=== PATIENT | female | born 1950 | race Caucasian/White ===

== ENCOUNTER 2019-01-11 11:52 | Inpatient (IN) | payer MEDICARE, MEDICAID ==
[2019-01-11] MEDS ORDERED: Sodium Chloride 0.9% 1,000 ML IV ONE (12:20)
--- NOTE | 2019-01-11 12:35 | ED Physician Chart ---
ED Chief Complaint/HPI - Patient Information Date Seen:: 01/11/19 Time Seen:: 12:00 Chief Complaint:: Weakness History of Present Illness:: onset x 2 days of fever, cough, congestion, weakness and dizziness; no report of trauma, H/As, S/T, neck pain, C/P, SOB, Abd. Pain, A/N/V/D/C, chills, or urinary s/s Allergies:: Allergies Allergy/AdvReac Type Severity Reaction Status Date / Time hydrochlorothiazide Allergy Verified 01/11/19 12:07 Vitals:: Vital Signs - 8 hr 01/11/19 12:02 Temp 97.7 F HR 85 RR 16 BP 117/54 O2 Sat % 99 Historian:: Patient, EMS Review:: Nurse's Note Reviewed, Old Chart Reviewed, EMS run form Reviewed ED Review of Systems - Review of Systems General/Constitutional: Fever, No chills, No weight loss, Weakness, No diaphoresis, No edema, No loss of appetite Skin: No skin lesions, No rash, No bruising Head: No headache, No light-headedness Eyes: No loss of vision, No pain, No diplopia ENT: No earache, No nasal drainage, No sore throat, No tinnitus Neck: No neck pain, No swelling, No thyromegaly, No stiffness, No mass noted Cardio Vascular: No chest pain, No palpitations, No PND, No orthopnea, No edema Pulmonary: No SOB, No cough, No sputum, No wheezing GI: No nausea, No vomiting, No diarrhea, No pain, No melena, No hematochezia, No constipation, No hematemesis G/U: No dysuria, No frequency, No hematuria, No nacturia Director [employer]: No vaginal discharge, No abnormal vaginal bleed, No contraction Musculoskeletal: No bone or joint pain, No back pain, No muscle pain Endocrine: No polyuria, No polydipsia Psychiatric: No prior psych history, No depression, No anxiety, No suicidal ideation, No homicidal ideation, No auditory hallucination, No visual hallucination Hematopoietic: No bruising, No lymphadenopathy Allergic/Immuno: No urticaria, No angioedema Neurological: No syncope, No focal symptoms, Weakness, No paresthesia, No headache, No seizure, Dizziness, Confusion, Vertigo ED Past Medical History - Past Medical History Obtainable: Yes Past Medical History: HTN, DM, CAD, Asthma/COPD, Dyslipidemia, Dementia Family History: Diabetes Melitus, HTN Social History: Non Smoker, No Alcohol, No Drug Use, Surgical History: None Psychiatricy History: Dementia Medication: Reviewed Family Medical History - Family Member Mother History Unknown: Yes ED Physical Exam - Physical Examination General/Constitutional: Awake, Well-developed, well-nourished, Alert, No distress, GCS 15, Non-toxic appearing, Ambulatory Head: Atraumatic Eyes: Lids, conjuctiva normal, PERRL, EOMI Skin: Nl inspection, No rash, No skin lesions, No ecchymosis, Well hydrated, No lymphadenopathy ENMT: External ears, nose nl, TM canals nl, Nasal exam nl, Lips, teeth, gums nl , Oropharynx nl, Tonsils nl Neck: Nontender, Full ROM w/o pain, No JVD, No nuchal rigidity, No bruit, No mass, No stridor Other Neck comments:: supple; no meningeal signs; no cervical tenderness; no bruits Respiratory: Nl effort/Exclusion Other Respiratory comments:: Lungs: + Rales and Rhonchi Cardio Vascular: RRR, No murmur, gallop, rubs, NL S1 S2, Carotid/Femoral/Distal pulses equal bilaterally GI: No tenderness/rebounding/guarding, No organomegaly, No hernia, Normal BS's, Nondistended, No mass/bruits, No McBurney tenderness, Rectum exam nl Other GI comments:: no pulsatile masses : No CVA tenderness Extremities: No tenderness or effusion, Full ROM, normal strength in all extremities, No edema, Normal digits & nails Neuro/Psych: Alert/oriented, DTR's symmetric, Normal sensory exam, Normal motor strength, Judgement/insight normal, Mood normal, Normal gait, No focal deficits Misc: Normal back, No paraspinal tenderness ED Labs/Radiology/EKG Results - Lab Results Comments:: Reviewed - Radiology Results Comments:: CXR: + Infiltrate; COPD - EKG Interpretations EKG Time:: 12:27 Rate & Rhythm: 82; NSR Comments:: LVH; T-Wave Inversions ED Septic Shock - . Is Septic Shock (SBP<90, OR Lactate>4 mmol\L) present?: No - <6hrs of presentation: Vital Signs: Vital Signs - 8 hr 01/11/19 12:02 Temp 97.7 F HR 85 RR 16 BP 117/54 O2 Sat % 99 ED Reassessment (Disposition) - Reassessment Reassessment Condition:: Improved - Diagnosis Diagnosis:: Weakness; Hypotension; Hypoglycemia; Myocardial Ischemia; Fever; Cough; Pneumonia; Leukocytosis; Elevated Troponin; Hyponatremia; Hypoalbuminemia - Aftercare/Follow up Instructions Aftercare/Follow-Up Instructions:: Counseled pt regarding lab results/diagnosis & need follow up, Counseled pt & family regarding lab results/diagnosis & need follow up - Patient Disposition Discharge/Transfer:: Acute Care w/in this hosp Accepting Physician:: Dr. Kearney Time Called:: 1330 Time Responded:: 13:30 Admitted to:: ICU Spoke to:: Dr. Kearney Admitting Medical Physician:: Dr. Kearney Condition at Disposition:: Stable, Improved
[2019-01-11 12:50] LABS: % BASOPHILS 0.1 % (0.0-2.0); % EOSINOPHILS 0.9 % (0.0-5.0); % LYMPHOCYTES 13.8 % (20.0-50.0); % MONOCYTES 1.6 % (2.0-10.0); % NEUTROPHILS 83.6 % (40.0-80.0); EOSINOPHILE ABSOLUTE 0.1 Th/cmm (0.1-0.4); HEMATOCRIT 40.3 % (41.0-60); HEMOGLOBIN 13.5 gm/dL (12-16); LYMPHOCYTE ABSOLUTE 2.2 Th/cmm (1.5-3.0); MEAN CELL VOLUME 94.7 fl (81-100); MEAN CORPUSCULAR HEMOGLOBIN 31.8 pg (27.0-31.0); MEAN CORPUSCULAR HGB CONC 33.6 pg (28.0-36.0); MONOCYTE ABSOLUTE 0.3 Th/cmm (0.3-1.0); NEUTROPHILE ABSOLUTE 13.6 Th/cmm (1.8-8.0); PLATELET COUNT 383 Th/cmm (150-400); RED BLOOD COUNT 4.25 Mil/cmm (3.80-5.20)
[2019-01-11 12:52] LABS: URINE SOURCE MIDSTREAM
[2019-01-11 12:55] LABS: INR 0.92 (0.5-1.4)
[2019-01-11 12:59] LABS: ALB/GLOB RATIO 1.5 (1.0-1.8); ALBUMIN 3.3 gm/dL (3.7-5.3); ALKALINE PHOSPHATASE 44 U/L (34-104); AMYLASE SERUM 27 U/L (29-103); BILIRUBIN,TOTAL 0.7 mg/dL (0.3-1.0); BUN - UREA NITROGEN 19 mg/dL (7-25); CALCIUM SERUM 8.6 mg/dL (8.6-10.3); CARBON DIOXIDE 24.8 mEq/L (21.0-31.0); CHLORIDE 102 mEq/L (98-107); CREATININE - SERUM 0.8 mg/dL (0.6-1.2); CREATININE KINASE 65 U/L (30-223); GFR AFRICAN-AMERICAN > 60.0 ml/min (>90); GFR NON AFRICAN-AMERICAN > 60.0 ml/min; GLUCOSE 89 mg/dL (70-105); LIPASE 31 U/L (11-82); POTASSIUM SERUM 3.8 mEq/L (3.5-5.1); SGOT 18 U/L (13-39); SGPT/ALT 15 U/L (7-52); SODIUM SERUM 133 mEq/L (136-145); TOTAL PROTEIN,SERUM 5.5 gm/dL (6.0-8.3)
[2019-01-11 13:11] LABS: URINE BILIRUBIN NEGATIVE (NEGATIVE); URINE BLOOD NEGATIVE (NEGATIVE); URINE GLUCOSE (UA) NEGATIVE (NEGATIVE); URINE KETONE NEGATIVE (NEGATIVE); URINE LEUKOCYTE ESTERASE NEGATIVE (NEGATIVE); URINE NITRATE NEGATIVE (NEGATIVE); URINE PROTEIN NEGATIVE (NEGATIVE); URINE UROBILINOGEN 0.2 E.U./dL (0.2 - 1.0)
[2019-01-11 13:12] LABS: URINE CLARITY CLEAR (CLEAR); URINE COLOR YELLOW; URINE MICROSCOPIC INDICATED? NO
[2019-01-11 13:14] LABS: WHITE BLOOD COUNT 16.2 Th/cmm (4.8-10.8)
[2019-01-11] MEDS ORDERED: Levofloxacin 500mg/100mL 500 MG/100 ML BAG IV ONE ×2 (13:16→13:46)
--- NOTE | 2019-01-11 13:33 | Diagnostic Imaging Report ---
Portable chest x-ray Time: 1232 History: Pain Allowing for portable technique the heart size is normal. No focal pulmonary parenchymal processes. No hilar or mediastinal abnormalities. Impression: No acute abnormalities.
[2019-01-11] MEDS ORDERED: D5-0.45NS 1,000 ML IV SCH (15:11)
[2019-01-11] MEDS ORDERED: cefTRIAXone 1 GM in Sodium Chloride 0.9% 50 ML IV SCH (15:11)
[2019-01-11] MEDS ORDERED: Albuterol/Ipratropium Neb 3 ML AERS HHN PRN ×2 (15:11→15:53)
[2019-01-11] MEDS ORDERED: Azithromycin 500 MG in Sodium Chloride 0.9% 250 ML IV SCH (17:00)
[2019-01-11] MEDS ORDERED: Azithromycin 500 MG in Sodium Chloride 0.9% 250 ML IV ONE ×2 (17:00→18:00)
[2019-01-11] MEDS: D5-0.45NS 1,000 ML IV SCH (17:01)
[2019-01-11] MEDS: cefTRIAXone 1 GM in Sodium Chloride 0.9% 50 ML IV SCH (17:02)
[2019-01-11 18:02] VITALS: BP 114/54
--- NOTE | 2019-01-12 03:46 | History & Physical ---
ADMIT DATE: 01/11/2019 CHIEF COMPLAINT: 1. Hypotension. 2. Weakness, not feeling well. HISTORY OF PRESENT ILLNESS: This is a 68-year-old female with underlying history of CVA associated with aphasia, left hemiparesis, chronic obstructive pulmonary disease, hypertension, coronary artery disease, prior history of [place], who was recently diagnosed with the severe bronchitis, was given oral antibiotic and bronchodilator treatment as an outpatient. The patient finished two courses of oral antibiotics, but the patient's chest congestion and cough still persists. This morning, the patient with hypotension, 67 systolic. The patient was not feeling well. No appetite. The patient discharged to Emergency Room where she had a repeat chest x-ray done suggestive of pneumonia. White count was 16.2, so the patient was admitted for further evaluation and treatment. PAST MEDICAL HISTORY: Dysphagia. PAST SURGICAL HISTORY: Denies. FAMILY HISTORY: Denies. SOCIAL HISTORY: assisted resident. Denies any alcohol. Chronic ex-smoker. No current alcohol, tobacco use street drug use. CURRENT MEDICATIONS: MAR reviewed ALLERGIES: HYDROCODONE. REVIEW OF SYSTEMS: As per HPI, 12-point system was negative. PHYSICAL EXAMINATION: VITAL SIGNS: Temperature 98, pulse 94, respirations 20, blood pressure 114/54. HEENT: Unremarkable. HEART: S1, S2 normal. LUNGS: Bilateral rales. ABDOMEN: Soft, Non tender EXTREMITIES: No calf tenderness. AVAILABLE LABORATORY DATA AND IMAGING STUDIES: As noted. ASSESSMENT: 1. Pneumonia. 2. Old cerebrovascular accident, late effect. 3. Chronic obstructive pulmonary disease. 4. Generalized weakness. 5. Coronary artery disease. PLAN: The patient admitted to Med/Surg floor. The patient was started on IV Rocephin, Zithromax, Pulmonology consult, _ DuoNeb nebulizer has been ordered. Pulmicort ordered. Serial troponins due to abnormal EKGs, discontinued. Continue aspirin and statin. Beta aaron restarted. Monitor lab and vitals. Discussed with the patient regarding condition and plan of care. JOB# [id number] JORGE
[2019-01-12] MEDS: D5-0.45NS 1,000 ML IV SCH ×2 (05:49→18:03)
[2019-01-12] MEDS: Budesonide 0.5 Mg/2 mL Ud HHN SCH ×2 (07:14→18:55)
[2019-01-12] MEDS: Aspirin 81mg Chewable Tab PO SCH (08:50)
--- NOTE | 2019-01-12 09:40 | Diagnostic Imaging Report ---
CT Chest without IV contrast HISTORY: Pneumonia COMPARISON: Chest x-ray performed on 01/11/2019. Technique: Axial images were obtained from the base of the neck to the upper abdomen without IV contrast. Reconstructions were made. Total DLP 194, CTD I 5.1 Findings: Evaluation of the mediastinum is limited due to lack of IV contrast. Heart size is normal. There is heavy atherosclerotic vascular disease with coronary artery calcifications. Small pericardial effusion is noted. No evidence of an aneurysm. Evaluation of the lungs demonstrates chronic interstitial lung changes and COPD changes seen throughout the lungs. Hazy densities are seen along the bilateral peripheral lung zones left greater than right. There is also a 2 mm nodule along the inferior aspect of the right lower lobe (image 56, series 3). No pleural effusions or focal consolidation. The upper abdomen demonstrate atherosclerosis. There are mild bilateral perinephric inflammatory changes. Gallstones are noted. Degenerative changes of the spine are noted. IMPRESSION: Chronic lung changes with emphysematous changes noted. There are faint hazy densities along the bilateral peripheral lung zones which may represents tiny infiltrates. As such infectious pneumonia cannot be excluded. Clinical correlation and follow-up recommended. 2 mm nodule right upper lobe probably due to old infectious or inflammatory process. Consider follow-up if indicated Diffuse atherosclerosis including coronary artery disease. Cholelithiasis.
--- NOTE | 2019-01-12 12:53 | General Progress Note ---
Subjective - Review of Systems Service Date: 01/12/19 Subjective: Patient seen and examined feels better no new concern reported Objective - Results Result Diagrams: 01/11/19 12:35 01/11/19 12:35 Recent Labs: Laboratory Last Values WBC 16.2 Th/cmm (4.8-10.8) H 01/11/19 12:35 RBC 4.25 Mil/cmm (3.80-5.20) 01/11/19 12:35 Hgb 13.5 gm/dL (12-16) 01/11/19 12:35 Hct 40.3 % (41.0-60) L 01/11/19 12:35 MCV 94.7 fl (81-100) 01/11/19 12:35 MCH 31.8 pg (27.0-31.0) H 01/11/19 12:35 MCHC Differential 33.6 pg (28.0-36.0) 01/11/19 12:35 RDW 14.0 % (11.5-20.0) 01/11/19 12:35 Plt Count 383 Th/cmm (150-400) 01/11/19 12:35 MPV 6.9 fl 01/11/19 12:35 Neutrophils % 83.6 % (40.0-80.0) H 01/11/19 12:35 Lymphocytes % 13.8 % (20.0-50.0) L 01/11/19 12:35 Monocytes % 1.6 % (2.0-10.0) L 01/11/19 12:35 Eosinophils % 0.9 % (0.0-5.0) 01/11/19 12:35 Basophils % 0.1 % (0.0-2.0) 01/11/19 12:35 PT 9.6 SECONDS (9.5-11.5) 01/11/19 12:35 INR 0.92 (0.5-1.4) 01/11/19 12:35 PTT (Actin FS) 21.3 SECONDS (26.0-38.0) L 01/11/19 12:35 Sodium 133 mEq/L (136-145) L 01/11/19 12:35 Potassium 3.8 mEq/L (3.5-5.1) 01/11/19 12:35 Chloride 102 mEq/L (98-107) 01/11/19 12:35 Carbon Dioxide 24.8 mEq/L (21.0-31.0) 01/11/19 12:35 Anion Gap 10.0 (7.0-16.0) 01/11/19 12:35 BUN 19 mg/dL (7-25) 01/11/19 12:35 Creatinine 0.8 mg/dL (0.6-1.2) 01/11/19 12:35 Est GFR ( Amer) > 60.0 ml/min (>90) 01/11/19 12:35 Est GFR (Non-Af Amer) > 60.0 ml/min 01/11/19 12:35 BUN/Creatinine Ratio 23.8 01/11/19 12:35 Glucose 89 mg/dL (70-105) 01/11/19 12:35 POC Glucose 105 MG/DL (70 - 105) 01/11/19 16:02 Whole Bld Lactic Acid 1.38 mmol/L (0.60-1.99) 01/11/19 12:35 Calcium 8.6 mg/dL (8.6-10.3) 01/11/19 12:35 Total Bilirubin 0.7 mg/dL (0.3-1.0) 01/11/19 12:35 AST 18 U/L (13-39) 01/11/19 12:35 ALT 15 U/L (7-52) 01/11/19 12:35 Alkaline Phosphatase 44 U/L (34-104) 01/11/19 12:35 Creatine Kinase 65 U/L (30-223) 01/11/19 12:35 Troponin I 0.06 ng/mL (0.01-0.05) H 01/11/19 20:10 Total Protein 5.5 gm/dL (6.0-8.3) L 01/11/19 12:35 Albumin 3.3 gm/dL (3.7-5.3) L 01/11/19 12:35 Globulin 2.2 gm/dL 01/11/19 12:35 Albumin/Globulin Ratio 1.5 (1.0-1.8) 01/11/19 12:35 Amylase 27 U/L (29-103) L 01/11/19 12:35 Lipase 31 U/L (11-82) 01/11/19 12:35 Urine Source MIDSTREAM 01/11/19 12:40 Urine Color YELLOW 01/11/19 12:40 Urine Clarity CLEAR (CLEAR) 01/11/19 12:40 Urine pH 6.0 (4.6 - 8.0) 01/11/19 12:40 Ur Specific [place] <= 1.005 (1.005-1.030) 01/11/19 12:40 Urine Protein NEGATIVE mg/dL (NEGATIVE) 01/11/19 12:40 Urine Glucose (UA) NEGATIVE mg/dL (NEGATIVE) 01/11/19 12:40 Urine Ketones NEGATIVE mg/dL (NEGATIVE) 01/11/19 12:40 Urine Blood NEGATIVE (NEGATIVE) 01/11/19 12:40 Urine Nitrate NEGATIVE (NEGATIVE) 01/11/19 12:40 Urine Bilirubin NEGATIVE (NEGATIVE) 01/11/19 12:40 Urine Urobilinogen 0.2 E.U./dL (0.2 - 1.0) 01/11/19 12:40 Ur Leukocyte Esterase NEGATIVE (NEGATIVE) 01/11/19 12:40 - Physical Exam Vitals and I&O: Vital Signs Temp 96.9 F 01/12/19 11:52 Pulse 74 01/12/19 11:52 Resp 18 01/12/19 12:42 BP 118/51 01/12/19 11:52 Pulse Ox 99 01/12/19 11:52 Intake & Output 01/11/19 01/12/19 01/12/19 18:59 06:59 18:59 Intake Total 240 1000 Balance 240 1000 Weight (lbs) 52.617 kg Intake: Intake, IV Amount 1000 D5-0.45NS 1,000 ml @ 80 1000 mls/hr IV .[id number] [facility] Rx #:[id number] Oral 240 Other: # Voids 1 # Bowel Movements 0 Weight Source Bedscale Active Medications: Current Medications Acetaminophen (Tylenol) 500 mg PO Q4HR PRN PRN Reason: Pain Or Fever above 101 Stop: 03/12/19 15:10 Acetaminophen (Tylenol) 650 mg PO Q6H PRN PRN Reason: mild pain Stop: 03/12/19 22:25 Albuterol/Ipratropium (Duoneb Neb) 3 ml HHN Q2H PRN PRN Reason: Wheezing Stop: 03/12/19 15:10 Last Admin: 01/12/19 07:14 Dose: 3 ml Aspirin (Aspirin Chewable) 81 mg PO DAILY [facility] Stop: 03/13/19 08:59 Last Admin: 01/12/19 08:50 Dose: 81 mg Atorvastatin Calcium (Lipitor) 80 mg PO HS [facility]; Protocol Stop: 03/12/19 22:59 Last Admin: 01/11/19 23:11 Dose: 80 mg Budesonide (Pulmicort) 0.5 mg HHN BIDRT [facility] Stop: 03/13/19 06:59 Last Admin: 01/12/19 07:14 Dose: 0.5 mg Clopidogrel Bisulfate (Plavix) 75 mg PO DAILY [facility] Stop: 03/13/19 08:59 Last Admin: 01/12/19 08:50 Dose: 75 mg Dextrose/Sodium Chloride (D5-0.45ns) 1,000 mls @ 80 mls/hr IV .[id number] [facility] Stop: 03/12/19 15:10 Last Admin: 01/12/19 05:49 Dose: 80 mls/hr Ceftriaxone Sodium 1 gm/ (Sodium Chloride) 50 mls @ 100 mls/hr IV Q24HR [facility] Stop: 03/12/19 15:10 Last Admin: 01/11/19 17:02 Dose: 100 mls/hr Metoprolol Tartrate (Lopressor) 25 mg PO BID [facility] Stop: 03/13/19 08:59 Last Admin: 01/12/19 08:50 Dose: 25 mg Ondansetron HCl (Zofran) 4 mg IV Q6H PRN PRN Reason: Nausea / Vomiting Stop: 03/12/19 15:10 Cardiovascular: Regular rate Lungs: Other (rales) Assessment/Plan - Assessment Assessment: Pneumonia CAD HTN Old CVA with late affect - Plan Plan: Patient slowly improving Continue current treatment
[2019-01-12] MEDS ORDERED: Albuterol/Ipratropium Neb 3 ML AERS HHN SCH (15:00)
[2019-01-12] MEDS: cefTRIAXone 1 GM in Sodium Chloride 0.9% 50 ML IV SCH (15:39)
[2019-01-12] MEDS: Albuterol/Ipratropium Neb 3 ML AERS HHN SCH ×2 (15:52→18:55)
[2019-01-12] MEDS: methylPREDNISolone SS 40 mg Vial IV SCH ×2 (16:44→20:27)
[2019-01-12] MEDS ORDERED: Budesonide 0.5 Mg/2 mL Ud HHN SCH ×2 (19:00)
--- NOTE | 2019-01-13 00:31 | Consultation ---
DATE OF CONSULTATION: 01/11/2019 PULMONARY CONSULTATION REASON FOR CONSULTATION: Shortness of breath. CONSULT NOTE: This is a 68-year-old female who basically has a history of underlying previous CVA with partial aphasia with left hemiparesis. The patient comes here because of shortness of breath, coughing, and wheezing. Unfortunately, very hard to hear. She is very high tone with partial exposure type of voice. Subsequently, the patient was treated as an outpatient with various bronchodilator medication as the patient continued to worse. The patient was admitted for further care and necessary treatment. PAST MEDICAL HISTORY: History of severe, possibly expressive aphasia, dysphagia and also history of previous pneumonia and also history of cerebrovascular accident. SMOKING HISTORY: The patient denies. Currently lives in a convalescent home, though there is some mention of a chronic smoker. ALLERGIC TO HYDROCODONE, otherwise unremarkable. PHYSICAL FINDING: GENERAL: This is a short stature middle-aged looking female, awake, alert, oriented, not in acute distress. VITAL SIGNS: The patient's recorded vitals: Temperature is 96.9, blood pressure 118/51. NECK: Veins not visualized. CHEST: Shows occasional rhonchi with generalized diminished air entry. HEART: Regular. ABDOMEN: Soft, nontender. EXTREMITIES: Shows no peripheral edema. LABORATORY DATA: The patient's pertinent laboratory study, chest x-ray is essentially unremarkable and the patient's CT chest shows chronic lung changes with some emphysema changes, otherwise unremarkable and very minimal interstitial heavy markings in the periphery and the patient's other laboratory studies, white count is 16.2 and hemoglobin 13.5. Electrolytes are okay. ASSESSMENT: The patient has an acute exacerbation of chronic obstructive pulmonary disease, questionable dysphagia, etc. with history of previous cerebrovascular accident. PLANS AND SUGGESTIONS: We will continue aggressive respiratory care, inhalation treatment, broad-spectrum antibiotic, question as to dysphagia evaluation, etc. and go from there. JOB# [id number]
[2019-01-13] MEDS: methylPREDNISolone SS 40 mg Vial IV SCH ×3 (04:15→20:55)
[2019-01-13 07:01] LABS: BASOPHILE ABSOLUTE 0.1 Th/cumm (0-0.2); EOSINOPHILE ABSOLUTE 0.1 Th/cmm (0.1-0.4); HEMATOCRIT 41.1 % (41.0-60); LYMPHOCYTE ABSOLUTE 0.6 Th/cmm (1.5-3.0); MEAN CELL VOLUME 95.9 fl (81-100); MEAN CORPUSCULAR HEMOGLOBIN 32.5 pg (27.0-31.0); MEAN CORPUSCULAR HGB CONC 33.9 pg (28.0-36.0); MONOCYTE ABSOLUTE 0.1 Th/cmm (0.3-1.0); NEUTROPHILE ABSOLUTE 10.4 Th/cmm (1.8-8.0); PLATELET COUNT 304 Th/cmm (150-400); RED BLOOD COUNT 4.29 Mil/cmm (3.80-5.20); RED CELL DISTRIBUTION WIDTH 13.2 % (11.5-20.0); WHITE BLOOD COUNT 11.3 Th/cmm (4.8-10.8)
[2019-01-13] MEDS: Budesonide 0.5 Mg/2 mL Ud HHN SCH ×2 (07:19→20:15)
[2019-01-13] MEDS: Albuterol/Ipratropium Neb 3 ML AERS HHN SCH ×4 (07:19→20:15)
[2019-01-13 07:54] LABS: ALB/GLOB RATIO 1.4 (1.0-1.8); ALBUMIN 3.4 gm/dL (3.7-5.3); ALKALINE PHOSPHATASE 43 U/L (34-104); ANION GAP 15.4 (7.0-16.0); BILIRUBIN,DIRECT 0.18 mg/dL (0.0-0.2); BILIRUBIN,TOTAL 0.8 mg/dL (0.3-1.0); BUN - UREA NITROGEN 10 mg/dL (7-25); CALCIUM SERUM 8.9 mg/dL (8.6-10.3); CARBON DIOXIDE 23.4 mEq/L (21.0-31.0); CHLORIDE 103 mEq/L (98-107); CREATININE - SERUM 0.8 mg/dL (0.6-1.2); GFR AFRICAN-AMERICAN > 60.0 ml/min (>90); GFR NON AFRICAN-AMERICAN > 60.0 ml/min; GLUCOSE 191 mg/dL (70-105); POTASSIUM SERUM 4.8 mEq/L (3.5-5.1); SGOT 15 U/L (13-39); SGPT/ALT 12 U/L (7-52); SODIUM SERUM 137 mEq/L (136-145); TOTAL PROTEIN,SERUM 5.8 gm/dL (6.0-8.3)
[2019-01-13 08:07] LABS: BAND NEUTROPHILE 1 % (0-10); NEUTROPHILS 88 % (40-80)
[2019-01-13 08:08] LABS: LYMPHOCYTE 8 % (20-50); MONOCYTE 3 % (2-10)
--- NOTE | 2019-01-13 08:59 | Diagnostic Imaging Report ---
CHEST X-RAY: AP view INDICATION: Pneumonia COMPARISON: Chest x-ray and chest CT 01/11/2019 FINDINGS: There is no focal consolidation or pleural effusions The heart is normal in size. Atherosclerosis is noted. Degenerative changes of the spine are noted. Gas-filled bowel the upper abdomen are noted. IMPRESSION: No focal consolidation identified. Please also refer to recent CT examination of the chest for further findings. Atherosclerotic vascular disease.
[2019-01-13] MEDS: Aspirin 81mg Chewable Tab PO SCH (09:02)
[2019-01-13] MEDS: D5-0.45NS 1,000 ML IV SCH ×2 (09:03→21:00)
[2019-01-13] MEDS: cefTRIAXone 1 GM in Sodium Chloride 0.9% 50 ML IV SCH (16:44)
--- NOTE | 2019-01-13 23:02 | General Progress Note ---
Subjective - Review of Systems Service Date: 01/13/19 Subjective: Patient seen and examined feels better no new concern reported Objective - Results Result Diagrams: 01/13/19 06:40 01/13/19 06:40 Recent Labs: Laboratory Last Values WBC 11.3 Th/cmm (4.8-10.8) H 01/13/19 06:40 RBC 4.29 Mil/cmm (3.80-5.20) 01/13/19 06:40 Hgb 14.0 gm/dL (12-16) 01/13/19 06:40 Hct 41.1 % (41.0-60) 01/13/19 06:40 MCV 95.9 fl (81-100) 01/13/19 06:40 MCH 32.5 pg (27.0-31.0) H 01/13/19 06:40 MCHC Differential 33.9 pg (28.0-36.0) 01/13/19 06:40 RDW 13.2 % (11.5-20.0) 01/13/19 06:40 Plt Count 304 Th/cmm (150-400) 01/13/19 06:40 MPV 7.0 fl 01/13/19 06:40 Add Manual Diff YES 01/13/19 06:40 Neutrophils % 83.6 % (40.0-80.0) H 01/11/19 12:35 Band Neutrophils % 1 % (0-10) 01/13/19 06:40 Lymphocytes % 13.8 % (20.0-50.0) L 01/11/19 12:35 Monocytes % 1.6 % (2.0-10.0) L 01/11/19 12:35 Eosinophils % 0.9 % (0.0-5.0) 01/11/19 12:35 Basophils % 0.1 % (0.0-2.0) 01/11/19 12:35 Neutrophils (Manual) 88 % (40-80) H 01/13/19 06:40 Lymphocytes 8 % (20-50) L 01/13/19 06:40 Monocytes 3 % (2-10) 01/13/19 06:40 PT 9.6 SECONDS (9.5-11.5) 01/11/19 12:35 INR 0.92 (0.5-1.4) 01/11/19 12:35 PTT (Actin FS) 21.3 SECONDS (26.0-38.0) L 01/11/19 12:35 Sodium 137 mEq/L (136-145) 01/13/19 06:40 Potassium 4.8 mEq/L (3.5-5.1) 01/13/19 06:40 Chloride 103 mEq/L (98-107) 01/13/19 06:40 Carbon Dioxide 23.4 mEq/L (21.0-31.0) 01/13/19 06:40 Anion Gap 15.4 (7.0-16.0) 01/13/19 06:40 BUN 10 mg/dL (7-25) 01/13/19 06:40 Creatinine 0.8 mg/dL (0.6-1.2) 01/13/19 06:40 Est GFR ( Amer) > 60.0 ml/min (>90) 01/13/19 06:40 Est GFR (Non-Af Amer) > 60.0 ml/min 01/13/19 06:40 BUN/Creatinine Ratio 12.5 01/13/19 06:40 Glucose 191 mg/dL (70-105) H 01/13/19 06:40 POC Glucose 105 MG/DL (70 - 105) 01/11/19 16:02 Whole Bld Lactic Acid 1.38 mmol/L (0.60-1.99) 01/11/19 12:35 Calcium 8.9 mg/dL (8.6-10.3) 01/13/19 06:40 Total Bilirubin 0.8 mg/dL (0.3-1.0) 01/13/19 06:40 Direct Bilirubin 0.18 mg/dL (0.0-0.2) 01/13/19 06:40 AST 15 U/L (13-39) 01/13/19 06:40 ALT 12 U/L (7-52) 01/13/19 06:40 Alkaline Phosphatase 43 U/L (34-104) 01/13/19 06:40 Ammonia 37 umol/L (16-53) 01/13/19 06:40 Creatine Kinase 65 U/L (30-223) 01/11/19 12:35 Troponin I 0.06 ng/mL (0.01-0.05) H 01/11/19 20:10 Total Protein 5.8 gm/dL (6.0-8.3) L 01/13/19 06:40 Albumin 3.4 gm/dL (3.7-5.3) L 01/13/19 06:40 Globulin 2.4 gm/dL 01/13/19 06:40 Albumin/Globulin Ratio 1.4 (1.0-1.8) 01/13/19 06:40 Amylase 27 U/L (29-103) L 01/11/19 12:35 Lipase 31 U/L (11-82) 01/11/19 12:35 Urine Source MIDSTREAM 01/11/19 12:40 Urine Color YELLOW 01/11/19 12:40 Urine Clarity CLEAR (CLEAR) 01/11/19 12:40 Urine pH 6.0 (4.6 - 8.0) 01/11/19 12:40 Ur Specific [place] <= 1.005 (1.005-1.030) 01/11/19 12:40 Urine Protein NEGATIVE mg/dL (NEGATIVE) 01/11/19 12:40 Urine Glucose (UA) NEGATIVE mg/dL (NEGATIVE) 01/11/19 12:40 Urine Ketones NEGATIVE mg/dL (NEGATIVE) 01/11/19 12:40 Urine Blood NEGATIVE (NEGATIVE) 01/11/19 12:40 Urine Nitrate NEGATIVE (NEGATIVE) 01/11/19 12:40 Urine Bilirubin NEGATIVE (NEGATIVE) 01/11/19 12:40 Urine Urobilinogen 0.2 E.U./dL (0.2 - 1.0) 01/11/19 12:40 Ur Leukocyte Esterase NEGATIVE (NEGATIVE) 01/11/19 12:40 - Physical Exam Vitals and I&O: Vital Signs Temp 97.6 F 01/13/19 20:21 Pulse 95 01/13/19 20:23 Resp 18 01/13/19 21:00 BP 104/57 01/13/19 20:21 Pulse Ox 98 01/13/19 20:23 Intake & Output 01/13/19 01/13/19 01/14/19 06:59 18:59 06:59 Intake Total 1400 435 956 Balance 1400 435 956 Weight (lbs) 52.617 kg 52.617 kg Intake: Intake, IV Amount 1000 956 D5-0.45NS 1,000 ml @ 80 1000 956 mls/hr IV .[id number] [facility] Rx #:[id number] Oral 400 435 Other: # Voids 4 3 # Bowel Movements 0 1 Weight Source Bedscale Bedscale Active Medications: Current Medications Acetaminophen (Tylenol) 500 mg PO Q4HR PRN PRN Reason: Pain Or Fever above 101 Stop: 03/12/19 15:10 Acetaminophen (Tylenol) 650 mg PO Q6H PRN PRN Reason: mild pain Stop: 03/12/19 22:25 Last Admin: 01/13/19 09:17 Dose: 650 mg Albuterol/Ipratropium (Duoneb Neb) 3 ml HHN Q2H PRN PRN Reason: Wheezing Stop: 03/12/19 15:10 Last Admin: 01/12/19 07:14 Dose: 3 ml Albuterol/Ipratropium (Duoneb Neb) 3 ml HHN [id number] [facility] Stop: 03/13/19 14:59 Last Admin: 01/13/19 20:15 Dose: 3 ml Albuterol/Ipratropium (Duoneb Neb) 3 ml HHN [id number] [facility] Stop: 03/13/19 14:59 Aspirin (Aspirin Chewable) 81 mg PO DAILY [facility] Stop: 03/13/19 08:59 Last Admin: 01/13/19 09:02 Dose: 81 mg Atorvastatin Calcium (Lipitor) 80 mg PO HS [facility]; Protocol Stop: 03/12/19 22:59 Last Admin: 01/13/19 20:55 Dose: 80 mg Budesonide (Pulmicort) 0.5 mg HHN BIDRT [facility] Stop: 03/13/19 06:59 Last Admin: 01/13/19 20:15 Dose: 0.5 mg Budesonide (Pulmicort) 0.5 mg HHN BIDRT [facility] Stop: 03/13/19 18:59 Budesonide (Pulmicort) 0.5 mg HHN BIDRT [facility] Stop: 03/13/19 18:59 Clopidogrel Bisulfate (Plavix) 75 mg PO DAILY [facility] Stop: 03/13/19 08:59 Last Admin: 01/13/19 09:02 Dose: 75 mg Dextrose/Sodium Chloride (D5-0.45ns) 1,000 mls @ 80 mls/hr IV .[id number] [facility] Stop: 03/12/19 15:10 Last Admin: 01/13/19 21:00 Dose: 80 mls/hr Ceftriaxone Sodium 1 gm/ (Sodium Chloride) 50 mls @ 100 mls/hr IV Q24HR [facility] Stop: 03/12/19 15:10 Last Admin: 01/13/19 16:44 Dose: 100 mls/hr Methylprednisolone Sodium Succinate (Solu-Medrol) 40 mg IV Q8HR [facility] Stop: 01/15/19 13:01 Last Admin: 01/13/19 20:55 Dose: 40 mg Metoprolol Tartrate (Lopressor) 25 mg PO BID [facility] Stop: 03/13/19 08:59 Last Admin: 01/13/19 16:44 Dose: 25 mg Ondansetron HCl (Zofran) 4 mg IV Q6H PRN PRN Reason: Nausea / Vomiting Stop: 03/12/19 15:10 General: Alert Cardiovascular: Regular rate Lungs: Other (rales) Assessment/Plan - Assessment Assessment: Pneumonia COPD exacerbation CAD HTN Old CVA with late affect - Plan Plan: Patient slowly improving Continue current treatment
[2019-01-14] MEDS: methylPREDNISolone SS 40 mg Vial IV SCH ×2 (04:29→13:16)
[2019-01-14 05:44] LABS: ANION GAP 14.5 (7.0-16.0); BUN - UREA NITROGEN 16 mg/dL (7-25); CALCIUM SERUM 8.6 mg/dL (8.6-10.3); CHLORIDE 104 mEq/L (98-107); CREATININE - SERUM 0.8 mg/dL (0.6-1.2); GFR AFRICAN-AMERICAN > 60.0 ml/min (>90); GFR NON AFRICAN-AMERICAN > 60.0 ml/min; GLUCOSE 144 mg/dL (70-105); POTASSIUM SERUM 3.5 mEq/L (3.5-5.1); SODIUM SERUM 137 mEq/L (136-145)
[2019-01-14] MEDS: Albuterol/Ipratropium Neb 3 ML AERS HHN SCH ×3 (07:08→14:37)
[2019-01-14] MEDS: Budesonide 0.5 Mg/2 mL Ud HHN SCH (07:08)
[2019-01-14 07:11] LABS: A1C 5.8 % (4.8-5.6)
[2019-01-14] MEDS: Aspirin 81mg Chewable Tab PO SCH (09:53)
[2019-01-14] MEDS: D5-0.45NS 1,000 ML IV SCH ×2 (11:16→18:34)
[2019-01-14] MEDS: cefTRIAXone 1 GM in Sodium Chloride 0.9% 50 ML IV SCH (15:41)
--- NOTE | 2019-01-14 16:43 | Progress Notes ---
DATE: 01/13/2019 PULMONARY PROGRESS NOTE PROBLEM LIST: Acute tracheobronchitis, questionable patchy pneumonitis. SYMPTOMS: Nil, feeling okay, feeling much better than yesterday. Offers no specific new symptomatology coughing and wheezing is better. PHYSICAL EXAMINATION: VITAL SIGNS: The patient is afebrile, temperature is 96/52, saturation is 92.7%. NECK: Veins not visualized. CHEST: Shows occasional rhonchi with diminished air entry. HEART: Regular. ABDOMEN: Soft, nontender. LABORATORY DATA: White count is 11,000, hemoglobin 14 grams. Electrolytes are okay. ASSESSMENT: The patient clinically is doing much better than 2 days ago and patient's chest x-ray shows no definite infiltrate. 1. The patient clinically appears to be improving respiratory fermin. 2. Tracheobronchitis. 3. History of CVA, etc. 4. History of chronic obstructive pulmonary disease. PLAN: We will continue current respiratory care, inhalation treatment, etc., and go from there. JOB# [id number]
--- NOTE | 2019-01-14 20:47 | Progress Notes ---
DATE: 01/14/2019 PULMONARY PROGRESS NOTE PROBLEM LIST: 1. Acute asthmatic bronchitis. 2. Underlying history of chronic obstructive pulmonary disease. 3. History of previous cerebrovascular accident. SYMPTOMS: Nil. The patient is feeling better, is going back to [facility]. No respiratory distress, etc. and she has been ambulating pretty good. PHYSICAL EXAMINATION: VITAL SIGNS: The patient's recorded vitals: Temperature is 98.0, blood pressure 127/57, saturation is 97 on room air. NECK: Veins not visualized. CHEST: Shows occasional rhonchi with diminished air entry. HEART: Regular. ABDOMEN: Soft, nontender. ASSESSMENT: The patient clinically seemingly much better, improving with a white count trending down, electrolytes are okay. PLANS AND SUGGESTIONS: Okay for discharge, can be followed up as an outpatient if authorized if needed and continue tapering dose of steroids. JOB# [id number]
--- NOTE | 2019-01-14 22:34 | General Progress Note ---
Subjective - Review of Systems Service Date: 01/14/19 Subjective: Patient seen and examined feels better no new concern reported Objective - Results Result Diagrams: 01/13/19 06:40 01/14/19 05:05 Recent Labs: Laboratory Last Values WBC 11.3 Th/cmm (4.8-10.8) H 01/13/19 06:40 RBC 4.29 Mil/cmm (3.80-5.20) 01/13/19 06:40 Hgb 14.0 gm/dL (12-16) 01/13/19 06:40 Hct 41.1 % (41.0-60) 01/13/19 06:40 MCV 95.9 fl (81-100) 01/13/19 06:40 MCH 32.5 pg (27.0-31.0) H 01/13/19 06:40 MCHC Differential 33.9 pg (28.0-36.0) 01/13/19 06:40 RDW 13.2 % (11.5-20.0) 01/13/19 06:40 Plt Count 304 Th/cmm (150-400) 01/13/19 06:40 MPV 7.0 fl 01/13/19 06:40 Add Manual Diff YES 01/13/19 06:40 Neutrophils % 83.6 % (40.0-80.0) H 01/11/19 12:35 Band Neutrophils % 1 % (0-10) 01/13/19 06:40 Lymphocytes % 13.8 % (20.0-50.0) L 01/11/19 12:35 Monocytes % 1.6 % (2.0-10.0) L 01/11/19 12:35 Eosinophils % 0.9 % (0.0-5.0) 01/11/19 12:35 Basophils % 0.1 % (0.0-2.0) 01/11/19 12:35 Neutrophils (Manual) 88 % (40-80) H 01/13/19 06:40 Lymphocytes 8 % (20-50) L 01/13/19 06:40 Monocytes 3 % (2-10) 01/13/19 06:40 PT 9.6 SECONDS (9.5-11.5) 01/11/19 12:35 INR 0.92 (0.5-1.4) 01/11/19 12:35 PTT (Actin FS) 21.3 SECONDS (26.0-38.0) L 01/11/19 12:35 Sodium 137 mEq/L (136-145) 01/14/19 05:05 Potassium 3.5 mEq/L (3.5-5.1) 01/14/19 05:05 Chloride 104 mEq/L (98-107) 01/14/19 05:05 Carbon Dioxide 22.0 mEq/L (21.0-31.0) 01/14/19 05:05 Anion Gap 14.5 (7.0-16.0) 01/14/19 05:05 BUN 16 mg/dL (7-25) 01/14/19 05:05 Creatinine 0.8 mg/dL (0.6-1.2) 01/14/19 05:05 Est GFR ( Amer) > 60.0 ml/min (>90) 01/14/19 05:05 Est GFR (Non-Af Amer) > 60.0 ml/min 01/14/19 05:05 BUN/Creatinine Ratio 20.0 01/14/19 05:05 Glucose 144 mg/dL (70-105) H 01/14/19 05:05 POC Glucose 105 MG/DL (70 - 105) 01/11/19 16:02 Whole Bld Lactic Acid 1.38 mmol/L (0.60-1.99) 01/11/19 12:35 Calcium 8.6 mg/dL (8.6-10.3) 01/14/19 05:05 Total Bilirubin 0.8 mg/dL (0.3-1.0) 01/13/19 06:40 Direct Bilirubin 0.18 mg/dL (0.0-0.2) 01/13/19 06:40 AST 15 U/L (13-39) 01/13/19 06:40 ALT 12 U/L (7-52) 01/13/19 06:40 Alkaline Phosphatase 43 U/L (34-104) 01/13/19 06:40 Ammonia 37 umol/L (16-53) 01/13/19 06:40 Creatine Kinase 65 U/L (30-223) 01/11/19 12:35 Troponin I 0.06 ng/mL (0.01-0.05) H 01/11/19 20:10 Total Protein 5.8 gm/dL (6.0-8.3) L 01/13/19 06:40 Albumin 3.4 gm/dL (3.7-5.3) L 01/13/19 06:40 Globulin 2.4 gm/dL 01/13/19 06:40 Albumin/Globulin Ratio 1.4 (1.0-1.8) 01/13/19 06:40 Amylase 27 U/L (29-103) L 01/11/19 12:35 Lipase 31 U/L (11-82) 01/11/19 12:35 Urine Source MIDSTREAM 01/11/19 12:40 Urine Color YELLOW 01/11/19 12:40 Urine Clarity CLEAR (CLEAR) 01/11/19 12:40 Urine pH 6.0 (4.6 - 8.0) 01/11/19 12:40 Ur Specific [place] <= 1.005 (1.005-1.030) 01/11/19 12:40 Urine Protein NEGATIVE mg/dL (NEGATIVE) 01/11/19 12:40 Urine Glucose (UA) NEGATIVE mg/dL (NEGATIVE) 01/11/19 12:40 Urine Ketones NEGATIVE mg/dL (NEGATIVE) 01/11/19 12:40 Urine Blood NEGATIVE (NEGATIVE) 01/11/19 12:40 Urine Nitrate NEGATIVE (NEGATIVE) 01/11/19 12:40 Urine Bilirubin NEGATIVE (NEGATIVE) 01/11/19 12:40 Urine Urobilinogen 0.2 E.U./dL (0.2 - 1.0) 01/11/19 12:40 Ur Leukocyte Esterase NEGATIVE (NEGATIVE) 01/11/19 12:40 - Physical Exam Vitals and I&O: Vital Signs Temp 98.7 F 01/14/19 20:00 Pulse 101 01/14/19 20:00 Resp 18 01/14/19 20:00 BP 137/55 01/14/19 20:00 Pulse Ox 96 01/14/19 20:00 Intake & Output 01/14/19 01/14/19 01/15/19 06:59 18:59 06:59 Intake Total 1456 1584 Output Total 1 Balance 1455 1584 Weight (lbs) 52.617 kg Intake: Intake, IV Amount 956 1584 D5-0.45NS 1,000 ml @ 80 956 1584 mls/hr IV .[id number] [id number] Rx #:[id number] Oral 500 Output: Urine 1 Other: # Voids 2 # Bowel Movements 0 Weight Source Bedscale General: Alert Cardiovascular: Regular rate Lungs: Clear to auscultation, Other (rales) Assessment/Plan - Assessment Assessment: Pneumonia COPD exacerbation CAD HTN Old CVA with late affect - Plan Plan: DC back to [facility] today Patient and friend agreed Will continue Rocephine for 4 more days upon discharge
--- NOTE | 2019-02-14 20:56 | Discharge Summary ---
DATE OF DISCHARGE: 01/14/2019 FINAL DIAGNOSES: 1. Pneumonia, improving. 2. Coronary artery disease, stable. 3. Old cerebrovascular accident late effect. 4. Chronic obstructive pulmonary disease exacerbation. 5. Hypertension. HOSPITAL COURSE: This is a 68-year-old female admitted for evaluation of the chest congestions, breathing difficulty and fever. The patient was evaluated in the Emergency Room, diagnosed with pneumonia, admitted to the hospital for further treatments, started on IV antibiotics, seen by residential program coordinator who concurred with ongoing antibiotics. Also, given nebulizer treatments, oxygen support. The patient's home medications were continued. After clinical improvement, the patient was cleared for discharge back to intermediate facility with continuation of care. DISCHARGE CONDITION: Stable. DISCHARGE MEDICATIONS: Please see medication reconciliation. DISCHARGE INSTRUCTION: To be followed by myself in the nursing facility. [facility]# [id number]
== END 2019-01-14 20:07 | DRG 190 ==
LOC: ER 11:52 → TELE 15:55
PROVIDERS: ADMIT Family Medicine; ATTEND Family Medicine
DX: J44.1 Chronic obstructive pulmonary disease with (acute) exacerbation (principal); J18.9 Pneumonia, unspecified organism; E87.1 Hypo-osmolality and hyponatremia; I69.354 Hemiplegia and hemiparesis following cerebral infarction affecting left non-dominant side; J44.0 Chronic obstructive pulmonary disease with (acute) lower respiratory infection; I25.10 Atherosclerotic heart disease of native coronary artery without angina pectoris; I10 Essential (primary) hypertension; E78.5 Hyperlipidemia, unspecified; I95.9 Hypotension, unspecified; I25.9 Chronic ischemic heart disease, unspecified; I69.320 Aphasia following cerebral infarction; I25.2 Old myocardial infarction; F03.90 Unspecified dementia, unspecified severity, without behavioral disturbance, psychotic disturbance, mood disturbance, and anxiety; Z83.3 Family history of diabetes mellitus; Z82.49 Family history of ischemic heart disease and other diseases of the circulatory system; E11.649 Type 2 diabetes mellitus with hypoglycemia without coma
CPT/HCPCS: 36415-UA; 71045-TC; 71250-TC; 80048-TC; 80053-TC; 81003-TC; 82140-TC; 82150-TC; 82248-TC; 82550-TC; 82948-90; 83036-90; 83605; 83690-TC; 84484-TC; 85007-TC; 85025-TC; 85610-TC; 85730-TC; 87070; 94760; 96375; J0456; J0696; J1956; J2920; J7030; Z7610